=== PATIENT | male | born 1950 | race Caucasian/White ===

== ENCOUNTER 2016-06-17 21:04 | Emergency (ER) | payer MEDICARE, OTHER ==
[~2016-06-17] VITALS: Ht 177.8 cm; Wt 95.5 kg
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
[2016-06-17 21:07] VITALS: BP 155/80; PULSE 88; RESP 16; O2SAT 96
[2016-06-17] MEDS ORDERED: Ondansetron 2 mg/mL 2 mL Inj IVPUSH ONE (21:30)
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
[2016-06-17 22:34] LABS: BASOPHILS % (AUTO) 0.4 % (0-3); EOSINOPHILS % (AUTO) 2.1 % (0-5); MONOCYTES % (AUTO) 10.2 % (4-12); Mean Corpuscular Hemoglobin 30.4 pg (27.0-35.0); NEUTROPHILS % (AUTO) 48.9 % (40-74); Platelet Count 178 bil/L (150-400)
[2016-06-17] MEDS ORDERED: IBUP-1827 PO (22:48)
[2016-06-17 22:51] LABS: INR 0.99 ratio
== END 2016-06-17 23:00 | disposition home or self-care (01) ==
LOC: EDBD 21:04 → SED 21:04
DX: S20.219A Contusion of unspecified front wall of thorax, initial encounter (principal); S09.8XXA Other specified injuries of head, initial encounter; S00.83XA Contusion of other part of head, initial encounter; Y04.0XXA Assault by unarmed brawl or fight, initial encounter; Y93.89 Activity, other specified; Y92.9 Unspecified place or not applicable; Y99.8 Other external cause status
CPT/HCPCS: 36415; 70450; 71020; 72125; 80053; 83690; 85025; 85610; 85730; 96374; 96375; 99284; G0480; J1885; J2405